=== PATIENT | male | born 1975 | race Caucasian/White ===

== ENCOUNTER 2025-05-22 10:51 | Inpatient (IN) | payer OTHER, SELFPAY ==
[2025-05-22] VITALS (27 sets, daily range): BP systolic 107–143; BP diastolic 61–99; PULSE 59–76; RESP 10–68; TEMP 36.7–37; O2SAT 91–97; BMI 28.5
--- NOTE | ~2025-05-22 | MR_ITS ---
EXAMINATION: MR BRAIN WITHOUT CONTRAST CLINICAL INFORMATION: Evaluate for stroke status post TPA. Left-sided weakness. COMPARISON: No prior MRI. CT head and CT angiogram head and neck 05/22/2025. TECHNIQUE: MRI of the brain was obtained using routine sequences without contrast. Examination performed on a 1.5 Lynn Siemens high-field unit. FINDINGS: There is no diffusion restriction. There is no intracranial hemorrhage, acute infarction, mass effect, or edema. Ventricles, sulci, and cisterns are normal in size and configuration for patient age. No shift of midline. No abnormal hemosiderin deposition is identified. There is a prominent perivascular space in the left basal ganglia. There are a few scattered punctate foci of white matter T2 hyperintensity in the periventricular, subcortical, and hemispheric deep white matter. These foci are nonspecific but statistically most likely relate to small vessel ischemic changes. They can also be seen with migraines. Midline structures appear normally formed. The pituitary gland appears normal. Posterior fossa structures appear normal. Cerebellar tonsils are appropriately located. Major flow voids are preserved within the skull base. The globes and orbital contents demonstrate no abnormalities. Paranasal sinuses demonstrate mild mucosal thickening left greater than right maxillary sinuses. The mastoids and tympanic cavities are normally aerated. Extracranial soft tissues demonstrate no abnormalities. No suspicious bone marrow changes are evident. Atlantoaxial joint is normal. MR/MR head/brain wo con IMPRESSION: 1. No evidence of intracranial hemorrhage, acute infarction, mass effect, or edema. 2. Very mild scattered white matter T2 hyperintense foci, findings consistent with very mild changes of small vessel ischemia. These findings can also be seen related to migraines. Electronically signed by: Cedrick Fernandez MD 05/23/2025 01:04 PM EDT
--- NOTE | ~2025-05-22 | CT_ITS ---
CLINICAL HISTORY: left sided weakness CT head without contrast Comparison: None provided Findings: No intra-axial mass, midline shift, hydrocephalus, or acute hemorrhage. Perivascular space versus old lacunar infarct in the inferior aspect of the left lentiform nucleus. A few bilateral small maxillary sinus polyps/retention cysts and mild left maxillary sinus mucosal thickening. The orbits are within normal limits. No skull fracture. IMPRESSION: 1. No acute intracranial findings. This document has been electronically signed by: Tosha Man MD on 05/22/2025 11:28:27
--- NOTE | ~2025-05-22 | CT_ITS ---
CLINICAL HISTORY: left sided weakness CT angiography head and neck with contrast. 3D Postprocessing. Comparison: None provided Findings: Dominant left vertebral artery. No evidence of significant arterial stenosis, aneurysm, AVM, or dissection. Patent dural venous sinuses. No abnormal intracranial enhancement. For rest of head findings please refer to same-day nonenhanced head CT report. Unremarkable visualized soft tissues. No acute fracture. Visualized lungs are unremarkable. 2 small foci of hyperostosis/osteomas along the medial aspects of the left and right mandibular arches (anterior aspect). IMPRESSION: No evidence of significant arterial stenosis, aneurysm, AVM, or dissection. This document has been electronically signed by: Tosha Man MD on 05/22/2025 12:11:12
--- NOTE | ~2025-05-22 | XR_ITS ---
CLINICAL HISTORY: left sided chest pain 1 view chest x-ray Comparison: None provided Findings: No consolidation or effusion. Borderline cardiomegaly. No acute fracture. IMPRESSION: Borderline cardiomegaly. This document has been electronically signed by: Tosha Man MD on 05/22/2025 12:21:37
--- NOTE | 2025-05-22 10:59 | ED.GENADULT ---
HPI - General Adult General Chief complaint: Stroke Stated complaint: L RIB PAIN/HEAVY SHOULDER/LEG 30M,-THIN Time Seen by Provider: 05/22/25 10:59 History of Present Illness ED Provider: Jolly HARLEY narrative: The patient is a 49-year-old male who denies any significant past medical history. He was at home today. At around 09:45 he experienced a sharp pain in his left chest. This was soon followed by a sense of left arm and left leg weakness. His family called 911. When paramedics arrived they said that he had fairly dense left arm weakness. He was transported to the hospital. His left arm weakness has improved but not in resolved. The left chest pain has resolved and has not returned. Here in the emergency department he does not have any significant ongoing pain either in his chest or anywhere else in his body. The patient says he is on no regular medications. He denies a history of hypertension, diabetes, elevated cholesterol, or other problems. Related Data Allergies Allergy/AdvReac Type Severity Reaction Status Date / Time No Known Allergies Allergy Verified 05/22/25 11:20 Review of Systems Review of Systems: Yes all other systems are reviewed and are negative [facility] Social History Social History Alcohol intake: never Smoked in Last 30 Days: No Use of substances other than those prescribed or required for medical reasons: No Advance Directives: No Advance Directives Information Provided: Yes Physical Exam ED Vital Signs: Vital Signs - 24 hr 05/22/25 11:16 05/22/25 11:23 05/22/25 11:36 Temperature 98.6 F 98.6 F Pulse Rate 76 76 62 Respiratory Rate 17 17 14 Blood Pressure 132/87 132/87 123/87 Pulse Oximetry 95 Oxygen Delivery Method Room Air Room Air Room Air 05/22/25 11:55 05/22/25 12:14 05/22/25 12:15 Temperature Pulse Rate 62 61 Respiratory Rate 18 18 Blood Pressure 132/98 H 133/91 H Pulse Oximetry 97 94 Oxygen Delivery Method Room Air 05/22/25 12:25 05/22/25 12:29 05/22/25 12:37 Temperature 98.2 F Pulse Rate 63 64 60 Respiratory Rate 20 18 18 Blood Pressure 120/99 H 136/98 H 137/89 Pulse Oximetry 95 94 95 Oxygen Delivery Method Room Air Room Air 05/22/25 12:56 Temperature 98.1 F Pulse Rate 66 Respiratory Rate 18 Blood Pressure 127/88 Pulse Oximetry 95 Oxygen Delivery Method Room Air BMI result Body Mass Index 28.5 Const Other: The patient is a 49-year-old male who looks as if he is generally in good health. He was awake and alert and did not seem in any acute distress. Mental status was normal. HENMT Other: No facial asymmetry. Tongue is midline. Face is unremarkable. Mucous membranes moist. Eyes Other: Pupils are round equal, extraocular movements are intact, visual pineda are intact to confrontation. Neck Neck: Yes normal visual inspection and Yes full ROM Resp Effort & Inspection: normal respiratory effort Auscultation: clear to auscultation bilaterally Cardio Other: No murmur heard Rate: regular rate Rhythm: regular rhythm Heart sounds: S1 normal heart sound present and S2 normal heart sound present GI Other: Abdomen is soft and nontender Skin Other: The skin is dry and unremarkable Neuro Other: The patient is awake and alert with a normal mental status. He is oriented to his age and the month. He follows commands appropriately. Pupils are round equal, lateral gaze is intact bilaterally. Visual pineda are intact to confrontation. There was no facial asymmetry. Speech is without dysarthria or aphasia. On my initial exam he had some mild left upper extremity weakness with fairly significant pronator drift but the arm did not hit the bed. His left leg had 4/5 strength when he attempted to lift the leg off the bed. No cerebellar signs. Sensation was intact throughout. On my initial exam his NIH stroke scale was a proximally 3, with one point for mild left arm weakness and at most 2 for left leg weakness. Extrem Other: There is no calf swelling or tenderness. No asymmetry. No peripheral edema. Medications Administered Discontinued Medications Generic Name Dose Route Start Last Admin Trade Name Subhashq PRN Reason Stop Dose Admin Iohexol 100 ml 05/22/25 11:21 05/22/25 11:21 Iohexol 350 Mg/Ml 100 Ml Infus..Btl IV 05/22/25 11:22 70 ml ONCE ONE Administration Tenecteplase 25 mg 05/22/25 11:23 05/22/25 11:58 Tenecteplase 50 Mg/10 Ml Kit IVPUSH 05/22/25 11:24 25 mg ONCE ONE Administration Medical Decision Making Medical Decision Making MDM Narrative: The patient is a 49-year-old male without significant past medical history, on no medications, who was at home this morning when at about 09:45 he 1st developed a stabbing pain in his left chest that he said felt like he was being stabbed in the ribs. This was followed by a sense of heaviness in his left arm and left leg. The weakness in his left arm and left leg was quite significant. His family was concerned and called an ambulance. Paramedics report that when they found the patient he had significant left-sided weakness that improved significantly in route to the hospital although it did not entirely resolve. I saw the patient on arrival. He had some left arm pronator drift and some more significant left leg weakness but no other neurological findings. He was made a code stroke and sent for noncontrast head CT and CT angiogram of the head and neck. Although the patient has left-sided weakness was suggestive of a stroke his description of the chest pain that preceded the weakness was unusual. Also unusual is that he is young and otherwise healthy and looks quite well. His vital signs were unremarkable. Additionally complicating management decisions was that his symptoms were improving while in the emergency room. I re-examined him after he returned from CAT scan. At that time his left arm pronator drift had resolved although he has a subjective sense that the left arm was somewhat heavy. Also his left leg strength improved significantly although again he still felt that the left leg was very heavy and he was not moving in his easily as the right leg. The patient denied any headache. He had no neck or back pain. The chest pain that he had had earlier had entirely resolved. Because of the chest pain he had described prior to the weakness I had asked the CT angiogram to generously include as much of the chest as seemed reasonable. I did not see any sign of dissection on the imaging. I felt the case was very equivocal as to whether he should receive thrombolytic therapy. He arrived within 3 hour window and he had no absolute contraindications to receiving TNK however his symptoms were very mild. I spoke to Dr. 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 I spoke to the patient and his (she was at the bedside) about using TNK in his case. They took a long time in discussing whether he should receive the medication. After a very prolonged discussion the patient finally consented to receiving thrombolytics. I had no good alternate explanation for the patient is left-sided weakness. He had no headache. No back pain. No neck pain. The patient will be admitted to the intensive care unit. Lab Data 05/22/25 11:09 05/22/25 11:09 Labs: Lab Results 05/22/25 05/22/25 05/22/25 Range/Units 11:01 11:04 11:09 WBC 4.6 L (4.8-10.8) X10*3/uL RBC 5.31 (4.20-5.50) X10*6/uL Hgb 16.4 H (12.0-16.0) g/dl Hct 45.0 (37.0-47.0) % MCV 84.7 (80.0-98.0) fL MCH 30.9 (27.0-33.0) pg MCHC 36.4 H (31.0-35.0) g/dl RDW 12.5 (11.0-16.0) % Plt Count 237 (160-400) X10*3/uL MPV 8.9 L (9.4-12.3) fL Immature Gran % (Auto) 0.2 (0.0-0.4) % Neut % (Auto) 45.6 (45-73) % Lymph % (Auto) 38.5 (20-40) % Maury % (Auto) 8.6 (2-11) % Eos % (Auto) 6.4 H (0-4) % Baso % (Auto) 0.7 (0-2) % Lymph # (Auto) 1.8 (1.2-4.9) X10*3/uL Maury # (Auto) 0.4 (0.1-1.2) X10*3/uL Eos # (Auto) 0.3 (0.0-0.4) X10*3/uL Baso # (Auto) 0.0 (0.0-0.2) X10*3/uL Abs Immat Gran (auto) 0.01 (0.00-0.03) X10*3/uL Absolute Neuts (auto) 2.1 (2.0-8.3) x10*3/uL Absolute Nucleated RBC 0.000 (0.0-0.012) X10*3/uL Nucleated RBC % (auto) 0.0 (0.0-0.2) /100WBC PT 11.1 (10.9-12.4) SEC Whole Blood PT 12.2 (11.1-13.5) sec INR 1.0 (0.9-1.1) Whole Blood INR 1.0 (0.9-1.1) APTT 32.6 (26.7-34.1) SEC Sodium 140 (135-145) mmol/L Potassium 4.4 (3.3-5.1) mmol/L Chloride 106 (96-108) mmol/L Carbon Dioxide 27 (22-29) mmol/L Anion Gap 11 L (12-20) BUN 13 (9-16) mg/dL Creatinine 0.87 (0.5-1.4) mg/dL Estim Creat Clear Calc 140.4 Estimated GFR > 60 POC Glucose 100 (60-115) mg/dL Random Glucose 89 (60-115) mg/dL Calcium 9.6 (8.4-10.2) mg/dL Troponin I High Sens < 2.7 (<3.5-35.0) ng/L Triglycerides 120 (<150) mg/dL Cholesterol 207 H (<200) mg/dL LDL Cholesterol, Calc 127 H (<100) mg/dL HDL Cholesterol 56 (>40) mg/dL Ethyl Alcohol < 10 mg/dL Critical Care Time Critical Care Time Critical Care Time: Yes Total Critical Care Time: 60 Attestation: The patient was critically ill with a high probability of imminent or life-threatening deterioration. ?I spent greater than 30 minutes of discontinuous time evaluating the patient, delivering critical care at the bedside, discussing evaluating data with consultants. ?Critical care time does not include time spent performing separately billable procedures or teaching. ?Time spent performing critical care with 35 minutes. Discharge Plan Discharge Clinical Impression: Acute left-sided weakness Patient Disposition: Admitted As Inpatient Print Language: Nepali
--- NOTE | 2025-05-22 11:00 | ECG_ITS ---
Test Reason : STROKE PROTOCOL Blood Pressure : */* mmHG Vent. Rate : 59 BPM Atrial Rate : 59 BPM P-R Int : 160 ms QRS Dur : 76 ms QT Int : 386 ms P-R-T Axes : 55 52 24 degrees QTcB Int : 382 ms Sinus bradycardia Otherwise normal ECG No previous ECGs available Referred By: Cecilio Azevedo Electronically Signed By: ALEXANDRE GAGNON MD
[2025-05-22 11:08] LABS: Glucose, Whole Blood 100 mg/dL (60-115)
[2025-05-22 11:08] LABS: Prothrombin Time Whole Bld POC 12.2 sec (11.1-13.5); ~PT, ~INR - Anti Coag Clinic 1.0 (0.9-1.1)
[2025-05-22 11:15] LABS: Hematocrit 45.0 % (37.0-47.0); Hemoglobin 16.4 g/dl (12.0-16.0); Imm Gran Abs Auto 0.01 X10*3/uL (0.00-0.03); Imm Gran Pct Auto 0.2 % (0.0-0.4); Lymphocytes Absolute Auto 1.8 X10*3/uL (1.2-4.9); MANUAL DIFF FLAG NO; Mean Corpuscular HGB Conc 36.4 g/dl (31.0-35.0); Mean Corpuscular Hemoglobin 30.9 pg (27.0-33.0); Mean Corpuscular Volume 84.7 fL (80.0-98.0); NRBC Abs Auto 0.000 X10*3/uL (0.0-0.012); NRBC Pct Auto 0.0 /100WBC (0.0-0.2); Platelet Count 237 X10*3/uL (160-400); Red Blood Count 5.31 X10*6/uL (4.20-5.50); White Blood Count 4.6 X10*3/uL (4.8-10.8)
[2025-05-22 11:21] LABS: INTERNATIONAL NORM RATIO 1.0 (0.9-1.1); Prothrombin Time 11.1 SEC (10.9-12.4)
[2025-05-22] MEDS: iohexoL 350 MG/ML 100 ML INFUS..BTL IV (11:21)
[2025-05-22 11:23] LABS: Partial Thromboplastin Time 32.6 SEC (26.7-34.1)
[2025-05-22 11:24] LABS: Stroke Lab Use COMPLETE
[2025-05-22 11:50] LABS: Anion Gap 11 (12-20); Blood Urea Nitrogen 13 mg/dL (9-16); Calcium 9.6 mg/dL (8.4-10.2); Carbon Dioxide 27 mmol/L (22-29); Chloride 106 mmol/L (96-108); Cholesterol 207 mg/dL (<200); Creatinine Clr Calc Pharmacy 140.4; Estimated Glomerular Filt Rate > 60; HDL Cholesterol 56 mg/dL (>40); Potassium 4.4 mmol/L (3.3-5.1); Sodium 140 mmol/L (135-145); Triglycerides 120 mg/dL (<150)
[2025-05-22 11:51] LABS: Troponin-I High Sensitivity < 2.7 ng/L (<3.5-35.0)
--- NOTE | 2025-05-22 12:03 | PC.NURSE ---
Patient arrived via ems with complaints of left rib/ side pain that felt like he was being stabbed between the ribs. Unsure how long it lasted but then left arm and left leg weakness and heaviness started. Upon arrival left arm with slight drift when asked to hold arms out in front of him and close eyes. Able to light leg leg slowly but states it feels heavy. 20g iv placed in left arm, brought to ct. MD at bedside with present to review risks vs benefits of tnk. Provider administered tnk at bedside. Denies headaches , vision changes, neck pain , or dizziness. PERRLA.
--- NOTE | 2025-05-22 12:33 | PC.NURSE ---
nathaly ARMENDARIZ patient report he is able to left left leg easier. Left arm patient reports close to being back to baseline. Patient stating left leg still feels heavy. Denies vision changes or headache
--- NOTE | 2025-05-22 12:39 | PC.NURSE ---
neuros intact, passed swallow eval, vss, denies vision changes, headaches, sob, or chest pain, at bedside. Patient and aware plan is for transfer to ICU
--- NOTE | 2025-05-22 12:54 | PC.NURSE ---
Continues to report improvement in left leg, states leg feels less heavy , reports able to raise left leg higher and with less difficulty. PERRLA, denies chest pain, sob, or visiob changes.
--- OUTSIDE RECORDS SUMMARY | 2025-05-22 13:12 | XMS_ITS | Encounter Summary ---
Author Organization [facility] Address [facility] [address] [address] Phone Care Team Providers Care Planer Hand Name Role Phone Lulú Bui DRAW FIRE OPERATOR Unavailable Christy Casas DRAW FIRE OPERATOR Unavailable Sandee Rodriguez PROSTHODONTIST/EDUCATOR Unavailable Susie Ferro TIN FLIPPER Unavailable [phone] Fran Vincent MD Unavailable Jenni Hinson DRAW FIRE OPERATOR Unavailable Harjinder Vincent MD Unavailable Jaxson Roman PROSTHODONTIST/EDUCATOR Unavailable Fran Vincent MD Primary Care Provider Hal Jorge MD Primary Care Provider Encounter Details Date Type Department Care Team (Late st Contact Info) Description 09/02/2017 Procedure Pass [facility], Ct Scan - [address] [address] Social History Tobacco Use Types Packs/Day Years Used Date Smoking Tobacco: Never Smokeless Tobacco: Never Alcohol Use Standard Drinks/Week Comments Yes 1 (1 standard drink = 0.6 oz pur e alcohol) Sex and Gender Information Value Date Recorded Sex Assigned at Male 09/14/2017 1:36 PM EST Legal Sex Male 9:25 PM EDT Gender Identity Male 09/14/2017 1:36 PM EST Sexual Orientation Straight 09/14/2017 1: 36 PM EST documented as of this encounter Plan of Treatment Upcoming Encounters Date Type Department Care Team (Late st Contact Info) Description 05/23/2025 9:30 AM EDT Office Visit [facility] [address] [place] [address] Hal Jorge MD [address] [place] [id number] [email or web address] 10/21/2025 12:00 PM EST Office Visit [address] [address] Hal Jorge MD [address] [place] [phone] [email or web address] documented as of this encounter Visit Diagnoses Not on filedocumented in this encounter Care Teams Planer Hand Relationship Specialty Start Date End Date Fran Vincent MD [address] [place] [phone] [email or web address] PCP - General Family Medicine 08/04/17 09/15/22 Hal Jorge MD [address] [place] [id number] [email or web address] PCP - General Family Medicine 09/16/22 Lulú Bui NP [address] [place] [address] Historical LMR Provider 06/03/17 2 Christy Casas NP [address] [place] [address] Historical LMR Provider 06/03/17 2 Sandee Rodrigeuz CNP [address] [facility], 2nd [place] [address] [email or web address] Historical LMR Provider 06/03/17 08/25/21 Susie Ferro FNP [address] [place] [address], [address] [place] [address] [email or web address] Historical LMR Provider 06/03/17 08/25/21 Fran Vincent MD [address] [place] [address] [address] [place] [phone] [email or web address] Historical LMR Provider 06/03/17 Jenni Hinson NP [address] [place] [id number] Historical LMR Provider 06/03/17 2 Harjinder Vincent MD [address] [place] [address] [address] [place] [phone] [email or web address] Historical LMR Provider 06/03/17 Jaxson Roman CNP [address] [facility], [address] [place] [address] [email or web address] Historical LMR Provider 06/03/17 documented as of this encounter Additional Source Comments The information contained in this document represents components of the legal health record. It is not the complete legal health record.[facility]
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
--- OUTSIDE RECORDS SUMMARY | 2025-05-22 13:12 | XMS_ITS | Encounter Summary ---
Author Organization [facility]ly [facility] Address [facility] [employer] [address] [address] Phone Care Team Providers Care Etl Tester Name Role Phone Lulú Bui SUPERVISOR CAR AND YARD Unavailable Christy Casas SUPERVISOR CAR AND YARD Unavailable Sandee Rodriguez STUDIO GRIP Unavailable Susie Ferro SALES SPECIAL AGENT Unavailable [phone] Fran Vincent MD Unavailable [phone] Jenni Hinson SUPERVISOR CAR AND YARD Unavailable Harjinder Vincent MD Unavailable Jaxson Roman STUDIO GRIP Unavailable Fran Vincent MD Primary Care Provider Hal Jorge MD Primary Care Provider [phone] Encounter Details Date Type Department Care Team (Late st Contact Info) Description 08/07/2017 Procedure Pass OR Admitting Dept - Virtual Department [address] [place], [place] [id number] Social History Tobacco Use Types Packs/Day Years [...] Description 05/23/2025 9:30 AM EDT Office Visit [facility] [address] [place] [address] Hal Jorge MD [address] [address] [email or web address] 10/21/2025 12:00 PM EST Office Visit [address] [address] Hal Jorge MD [address] [place] [phone] [email or web address] documented as of this encounter Visit Diagnoses Not on filedocumented in this encounter Care Teams Etl Tester Relationship Specialty Start Date End Date Fran Vincent MD [address] [place] [phone] [email or web address] PCP - General Family Medicine 08/04/17 09/15/22 Hal Jorge MD [address] [place] [phone] [email or web address] PCP - General Family Medicine 09/16/22 Lulú Bui NP 1 [place] [address] Historical LMR Provider 06/03/17 2 Christy Casas NP 29 [place] [address] Historical LMR Provider 06/03/17 2 Sandee Rodriguez CNP [address] [facility], 2nd [place] [address] Historical LMR Provider 06/03/17 08/25/21 Susie Ferro FNP [address] [place] [address], [address] [place] [address] [email or web address] Historical LMR Provider 06/03/17 08/25/21 Fran Vincent MD [address] [place] [address] 7 [place] [phone] [email or web address] Historical LMR Provider 06/03/17 Jenni Hinson, CHANEL [address] [place] [address] Historical LMR Provider 06/03/17 2 Harjinder Vincent MD [address] [place] [address] [address] [place] [phone] [email or web address] Historical LMR Provider 06/03/17 Jaxson Roman CNP [address] [facility], [address] [place] [address] [email or web address] Historical LMR Provider 06/03/17 documented as of this encounter Additional Source Comments The information contained in this document represents components of the legal health record. It is not the complete legal health record.[facility]
--- OUTSIDE RECORDS SUMMARY | 2025-05-22 13:12 | XMS_ITS | Encounter Summary ---
Author Organization [facility] Address Replaced by [facility] [employer] [address] [address] Phone Care Team Providers Care Admission Nurse Name Role Phone Lulú Bui RAG COLLECTOR Unavailable Christy Casas RAG COLLECTOR Unavailable Sandee Rodriguez GAS WELDER APPRENTICE Unavailable Susie Ferro COMPLIANCE INTERN Unavailable [phone] Fran Vincent MD Unavailable [phone] Jenni Hinson RAG COLLECTOR Unavailable Harjinder Vincent MD Unavailable Jaxson Roman GAS WELDER APPRENTICE Unavailable Fran Vincent MD Primary Care Provider Hal Jorge MD Primary Care Provider Encounter Details Date Type Department Care Team (Late st Contact Info) Description 08/07/2017 Procedure Pass OR Admitting Dept - Virtual Department 30 [place], [place] [phone] Social History Tobacco Use Types Packs/Day Years [...] Description 05/23/2025 9:30 AM EDT Office Visit [facility] [address] [place] [address] Hal Jorge MD [address] [address] [email or web address] 10/21/2025 12:00 PM EST Office Visit [address] [address] Hal Jorge MD [address] [place] [address] [email or web address] documented as of this encounter Visit Diagnoses Not on filedocumented in this encounter Care Teams Admission Nurse Relationship Specialty Start Date End Date Fran Vincent MD [address] [place] [phone] [email or web address] PCP - General Family Medicine 08/04/17 09/15/22 Hal Jorge MD [address] [place] [address] [email or web address] PCP - General Family Medicine 09/16/22 Lulú Bui NP 1 [facility] [place] [address] Historical LMR Provider 06/03/17 2 Christy Casas NP 29 [place] [address] Historical LMR Provider 06/03/17 2 Sandee Rodriguez CNP 15 [facility], 2nd [place] [address] Historical LMR Provider 06/03/17 08/25/21 Susie Ferro FNP [address] [place] [address], [address] [place] [address] [email or web address] Historical LMR Provider 06/03/17 08/25/21 Fran Vincent MD [address] [place] [address] 7 [place] [phone] [email or web address] Historical LMR Provider 06/03/17 Jenni Hinson, CHANEL [address] [place] [address] Historical LMR Provider 06/03/17 2 Harjinder Vincent MD [address] [place] [address] [address] [place] [phone] [email or web address] Historical LMR Provider 06/03/17 Jaxson Roman CNP 22 [facility], [address] [place] [address] [email or web address] Historical LMR Provider 06/03/17 documented as of this encounter Additional Source Comments The information contained in this document represents components of the legal health record. It is not the complete legal health record.[facility]
[2025-05-22] MEDS: Lactated Ringers 1,000 ML 100 ML IVCONT ×2 (13:22→21:59)
--- NOTE | 2025-05-22 13:36 | PC.NURSE ---
Report given to ICU
[2025-05-22 14:50] LABS: Troponin-I High Sensitivity < 2.7 ng/L (<3.5-35.0)
--- NOTE | 2025-05-22 14:58 | P.HPCC_ITS ---
History of Present Illness Date of Service: 05/22/25 Chief Complaint: Left-sided heaviness 49-year-old gentleman with no significant past medical history, last annual physical 3 months ago when everything was seemed to be normal was apparently had a normal beginning Friday when he walked his dog and came back home. At around 09:45 when he was making breakfast for his daughter he suddenly felt stabbing chest pain and his left arm was heavy as well as his left leg, he walked with a so far and sat down where he has felt his left side of the body was weak. called the EMS, brought into the ED underwent CT and CTA both of which was normal, his symptoms had started improving but still had some persisting symptoms so received TNK at 11:58AM. He is admitted to medical ICU for post TNK monitoring Review of Systems 2 Constitutional: Constitutional: Denies body ache(s), Denies daytime sleepiness and Denies difficulty sleeping Eyes: Eyes: Denies exophthalmos and Denies change in vision ENT: Reports Normal hearing present, Denies bleeding gums and Reports dizziness Cardiovascular: Cardiovascular: Reports Abdominal Distension, Reports chest pain and Denies chest pain at rest Respiratory: Respiratory: Denies change in phlegm color, Denies chest congestion and Denies cough Gastrointestinal: Gastrointestinal: Denies abdominal pain, Denies melena and Denies hematochezia Genitourinary: Genitourinary: Denies change in libido and Denies hematuria Musculoskeletal: Musculoskeletal: Denies myalgias and Denies atrophy Neurologic: Reports Normal hearing present, Denies Neuro-related abnormal movements, Denies Abnormal speech present, Denies confusion, Reports dizziness, Reports focal weakness, Reports Sensory deficit (Neuro) and Reports paresthesias Psychiatric: Psychiatric: Denies change in libido and Denies confusion Endocrine: Endocrine: Denies change in libido and Denies cold intolerance PMFSH Social History Social History Household Members: Spouse and Children Housing: House Do you presently have visiting nurse or other home services: No Alcohol intake: never Patient Tobacco Use Status: Never used Tobacco Smoked in Last 30 Days: No Use of substances other than those prescribed or required for medical reasons: No Have you been hit, kicked, punched, or otherwise hurt by someone within the past year? If so, by whom?: No Do you feel safe in your current relationship?: Yes Is there a partner from a previous relationship who is making you feel unsafe now?: No Are you made to feel afraid or neglected: No Advance Directives: No Advance Directives Information Provided: Yes Do you have a plan to hurt others: No Plan Recently lost weight without trying: No Eating poorly because of decreased appetite: No Nutrition Risks: No Nutritional Risk Poor oral hygiene: No Meds Allergies Allergy/AdvReac Type Severity Reaction Status Date / Time No Known Allergies Allergy Verified 05/22/25 11:20 Active Medications: Current Medications Lactated Ringer's (Lr) 1,000 mls @ 100 mls/hr IVCONT .Q10H [facility] Last Admin: 05/22/25 13:22 Dose: 100 mls/hr Ondansetron HCl (Ondansetron Hcl 4 Mg/2 Ml Vial) 4 mg IVPUSH Q8H PRN PRN Reason: Vomiting Pantoprazole Sodium (Pantoprazole Sodium 40 Mg/10 Ml Vial) 40 mg IVPUSH DAILY@0630 [facility] Last Admin: 05/22/25 13:22 Dose: 40 mg Home Medications ?Medication ?Instructions ?Recorded ?Confirmed ?Last Taken ?Type No Known Home Meds 05/22/25 05/22/25 Un known History Physical Exam 2 Vital Signs: Vital Signs: Last Vital Signs Temp 98.1 F 05/22/25 12:56 Pulse 64 05/22/25 14:00 Resp 14 05/22/25 14:00 BP 133/88 05/22/25 14:00 Pulse Ox 93 05/22/25 14:00 O2 Del Method Room Air 05/22/25 14:00 BMI result Body Mass Index 28.5 General: Middle-aged male in no acute distress, comfortably sitting in the Nutritional Appearance: well nourished and overweight Eyes: appearance normal, both eyes and all related structures; Alignment and Position: alignment normal and position normal Neck: No lymphadenopathy, no thyromegaly Resp: bilateral air entry equal, no added sounds present Cardio: Regular rate, regular rhythm; Heart sounds: S1 normal heart sound present and S2 normal heart sound present GI: soft, nontender, no guarding, no hepatosplenomegaly : bladder normal to inspection, bladder normal to palpation, no renal angle tenderness Skin: no rashes or lesions noted and elasticity normal Neuro: oriented to person, oriented to place, oriented to time, left-sided power 5 x 5 in upper and lower extremities, gross touch, fine touch and positional sensations normal in left upper and lower extremities Const: General: No confusion Orientation/consciousness: No confusion Neuro: General: No confusion Cranial nerves: Yes Normal hearing present Speech: No Abnormal speech present Sensory Exam: Sensory deficit (Neuro) Results Labs 05/22/25 11:09 05/22/25 11:09 Labs: Laboratory Results - last 24 hr 05/22/25 05/22/25 05/22/25 11:01 11:04 11:09 MCV 84.7 MCH 30.9 MCHC 36.4 H RDW 12.5 Plt Count 237 MPV 8.9 L Immature Gran % (Auto) 0.2 Neut % (Auto) 45.6 Lymph % (Auto) 38.5 Irwin % (Auto) 8.6 Eos % (Auto) 6.4 H Baso % (Auto) 0.7 Lymph # (Auto) 1.8 Irwin # (Auto) 0.4 Eos # (Auto) 0.3 Baso # (Auto) 0.0 Abs Immat Gran (auto) 0.01 Absolute Neuts (auto) 2.1 Absolute Nucleated RBC 0.000 Nucleated RBC % (auto) 0.0 PT 11.1 Whole Blood PT 12.2 INR 1.0 Whole Blood INR 1.0 APTT 32.6 Anion Gap 11 L Estim Creat Clear Calc 140.4 Estimated GFR > 60 POC Glucose 100 Random Glucose 89 Calcium 9.6 Phosphorus Troponin I High Sens < 2.7 Triglycerides 120 Cholesterol 207 H LDL Cholesterol, Calc 127 H HDL Cholesterol 56 Ethyl Alcohol < 10 05/22/25 13:45 MCV MCH MCHC RDW Plt Count MPV Immature Gran % (Auto) Neut % (Auto) Lymph % (Auto) Irwin % (Auto) Eos % (Auto) Baso % (Auto) Lymph # (Auto) Irwin # (Auto) Eos # (Auto) Baso # (Auto) Abs Immat Gran (auto) Absolute Neuts (auto) Absolute Nucleated RBC Nucleated RBC % (auto) PT Whole Blood PT INR Whole Blood INR APTT Anion Gap Estim Creat Clear Calc Estimated GFR POC Glucose Random Glucose Calcium Phosphorus 3.3 Troponin I High Sens < 2.7 Triglycerides Cholesterol LDL Cholesterol, Calc HDL Cholesterol Ethyl Alcohol Assessment and Plan (1) Acute left-sided weakness: Status: Acute (2) Stroke: Status: Acute Plan Acute ischemic stroke: Patient presented with sudden onset left upper and lower extremity heaviness and weakness that began at 09:45AM. CT head and CTA head and neck normal. Received TNK at 11:58AM. We will closely monitor his neurological status every 15 minutes for the 1st 2 hours, then every 30 minutes for for 6 hours and then hourly Repeat brain imaging in case of any neurological deterioration, or else it will be tomorrow morning. Closely monitor blood pressures, target systolics less than 185mmHg We will start statin, aspirin as per Neurology We will get TTE Passed swallow evaluation, diet ordered Will need OT and PT evaluation tomorrow
--- NOTE | 2025-05-22 14:58 | PHA.MEDREC ---
Pharmacy Consult ? Medication Reconciliation Pharmacy has completed the medication reconciliation. PT HAS NO CLAIMS. CONFIRMED WITH PT THAT HE TAKES NO MEDICATIONS ON REGULAR BASIS.
--- NOTE | 2025-05-22 16:09 | PM.NEUROCN ---
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 He was in usual state of health when he felt pain and left side of his chest and then weakness in his left arm or leg. Weakness and arm or leg seem to spread and few sec and it became so severe that he could not even lift his arm or leg. Nobody noted any facial asymmetry. He was brought to hospital in apparently his weakness somewhat improved but continued to be so. Initial evaluation for stroke were done and with no contraindication and discussion about his profession that might be impacted by weakness, it was decided to treat him with TNK for diagnosis of ischemic stroke. I saw him in ICU when he was doing okay with symptoms resolved. He denied any headache. There was no nausea vomiting. He denied any new significant stress. He denied any aggressive physical activity. Review of Systems Review of Systems: No recent cold or flu-like illness PMFSH Social History Social History Household Members: Spouse and Children Housing: House Do you presently have visiting nurse or other home services: No Alcohol intake: never Patient Tobacco Use Status: Never used Tobacco Smoked in Last 30 Days: No Use of substances other than those prescribed or required for medical reasons: No Have you been hit, kicked, punched, or otherwise hurt by someone within the past year? If so, by whom?: No Do you feel safe in your current relationship?: Yes Is there a partner from a previous relationship who is making you feel unsafe now?: No Are you made to feel afraid or neglected: No Advance Directives: No Advance Directives Information Provided: Yes Do you have a plan to hurt others: No Plan Recently lost weight without trying: No Eating poorly because of decreased appetite: No Nutrition Risks: No Nutritional Risk Poor oral hygiene: No Meds Allergies Allergy/AdvReac Type Severity Reaction Status Date / Time No Known Allergies Allergy Verified 05/22/25 11:20 Active Medications: Current Medications Atorvastatin Calcium (Atorvastatin Calcium 80 Mg Tablet) 80 mg PO DAILY [facility] Lactated Ringer's (Lr) 1,000 mls @ 100 mls/hr IVCONT .Q10H [facility] Last Admin: 05/22/25 13:22 Dose: 100 mls/hr Ondansetron HCl (Ondansetron Hcl 4 Mg/2 Ml Vial) 4 mg IVPUSH Q8H PRN PRN Reason: Vomiting Pantoprazole Sodium (Pantoprazole Sodium 40 Mg/10 Ml Vial) 40 mg IVPUSH DAILY@0630 [facility] Last Admin: 05/22/25 13:22 Dose: 40 mg Home Medications ?Medication ?Instructions ?Recorded ?Confirmed ?Last Taken ?Type No Known Home Meds 05/22/25 05/22/25 Unknown History Physical Exam Vital Signs: Vital Signs: Last Vital Signs Temp 98.1 F 05/22/25 12:56 Pulse 76 05/22/25 15:00 Resp 10 L 05/22/25 15:00 BP 134/88 05/22/25 15:00 Pulse Ox 94 05/22/25 15:00 O2 Del Method Room Air 05/22/25 15:00 BMI result Body Mass Index 28.5 Neuro: Other: He is alert and awake with normal spontaneity of speech fluency comprehension and mildly anxious affect. Face is symmetrical. Visual pineda are full. Extraocular muscles were intact. Pupils are equal and reactive to light. There was no pronator drift. No focal weakness was noted. Plantars were flexors. Results Labs 05/22/25 11:09 05/22/25 11:09 Labs: Short CBC 05/22/25 Range/Units 11:09 WBC 4.6 L (4.8-10.8) X10*3/uL Hgb 16.4 H (12.0-16.0) g/dl Hct 45.0 (37.0-47.0) % Plt Count 237 (160-400) X10*3/uL BMP 05/22/25 11:09 Sodium 140 Potassium 4.4 Chloride 106 Carbon Dioxide 27 BUN 13 Creatinine 0.87 Calcium 9.6 CTA and CTA of brain and neck did not reveal any significant abnormality. Assessment and Plan (1) Acute left-sided weakness: Status: Acute 49 years old man with acute left arm or leg weakness treated with TNK. Possibilities included ischemic infarct or complex migraine. A noncontrast MRI of brain is recommended for further evaluation. As far as migraine is concerned, he never had complex migraine or similar symptoms in the past and was not having a headache. I recommend keeping him in ICU for 24 hours and then transferred to intermediate care unit and starting him on baby aspirin daily at least until his workup is done. I would also recommend echocardiogram to rule out any congenital anomaly. Procedures Date of Service Date of Service: 05/22/25
--- NOTE | 2025-05-22 18:34 | PC.NURSE ---
Pt. arrived to ICU from ED at approx 1355- Pt. A&Ox4, PERRLA no complaints. SPRINGER, Mild weakness to LUE and LLE. Q30 min VS and neuro checks completed per post-TNK protocol. SR/SB on tele, HR 50s-70s. SBPs 120s-130s. Regular diet tolerating well. voiding cyu via urinal. Repositions self. Family at bedside, updated by this RN. Plan of care ongoing.
[2025-05-23] VITALS (16 sets, daily range): BP systolic 102–155; BP diastolic 68–90; PULSE 53–80; RESP 14–21; TEMP 36.1–36.6; O2SAT 90–96; BMI 28.2; BMI 29.1
[2025-05-23 05:08] LABS: MANUAL DIFF FLAG NO
--- NOTE | 2025-05-23 05:08 | PC.NURSE ---
Assumed care of patient at 1900. Neuro: Patient is alert and oriented x 4, Neuro checks [id number] until 1999, then Q1H. Some mild left sided weakness in both arm and leg. Pt complained of headache behind his right eye at 2200, with no further symptoms, provider notified and tylenol 975 mg x 1 administered with effect. Cardiac: SB-SR on monitor VSS. Resp: Room Air, Clear lungs GI/: Standing at bedside to use urinal. LBM 05/22/25. Integumentary/Musculoskeletal: Skin intact, moves all extremities.? Psychosocial: and daughter at bedside visiting. Pt receiving LR @ 100. Bed in lowest position, alarm on. Call alegre within reach.
[2025-05-23 05:11] LABS: Hematocrit 40.7 % (42.0-52.0); Hemoglobin 14.8 g/dl (14.0-18.0); Imm Gran Abs Auto 0.01 X10*3/uL (0.00-0.03); Imm Gran Pct Auto 0.2 % (0.0-0.4); Lymphocytes Absolute Auto 2.2 X10*3/uL (1.2-4.9); Mean Corpuscular HGB Conc 36.4 g/dl (31.0-36.0); Mean Corpuscular Hemoglobin 31.3 pg (27.0-33.0); Mean Corpuscular Volume 86.0 fL (80.0-98.0); NRBC Abs Auto 0.000 X10*3/uL (0.0-0.012); NRBC Pct Auto 0.0 /100WBC (0.0-0.2); Platelet Count 206 X10*3/uL (160-400); Red Blood Count 4.73 X10*6/uL (4.60-5.80); White Blood Count 5.1 X10*3/uL (4.8-10.8)
[2025-05-23 05:34] LABS: Alanine Aminotransferase 21 U/L (0-40); Albumin Level 3.9 g/dL (3.5-5.0); Alkaline Phosphatase 67 U/L (39-117); Anion Gap 12 (12-20); Aspartate Amino Transferase 17 U/L (5-37); Blood Urea Nitrogen 15 mg/dL (9-16); Calcium 8.6 mg/dL (8.4-10.2); Carbon Dioxide 23 mmol/L (22-29); Chloride 106 mmol/L (96-108); Creatinine Clr Calc Pharmacy 147.2; Estimated Glomerular Filt Rate > 60; Magnesium 2.0 mg/dL (1.6-2.6); Potassium 3.6 mmol/L (3.3-5.1); Sodium 137 mmol/L (135-145); Total Protein 6.2 g/dL (6.5-8.0)
--- NOTE | 2025-05-23 07:00 | CA_ITS ---
Transthoracic Echocardiogram Patient (Last, First, Middle): Taco Cobos, Gender: Male Date of : 1975 Age: 49 Procedure Date: 05/23/2025 Procedure Type: Transthoracic Echocardiogram Location: ICU Height: 193.04 cm Weight: 104.78 kg BSA: 2.36 m2 Heart Rate: 61 bpm BP: 121 / 85 mmHg Welder Pipe Making: LORNE Katz MD: Ankit Pedraza MD Exercise Planner: Keaton Lind MD Symptoms: stroke Study Quality: Fair ECG Rhythm: Sinus Conclusions: - Essentially normal study without clear evidence of intracardiac shunting Findings Left Ventricle Normal left ventricular size, thickness, and systolic function. The visually estimated ejection fraction is between 65-70%. Spectral Doppler is indicative of an impaired relaxation filling pattern. E/E prime ratio is <8, consistent with normal filling pressures. Right Ventricle Normal right ventricular cavity size and systolic function. Atria Both atria are normal in size. There is no evidence of interatrial shunt by agitated saline. Aortic Valve Normal aortic valve structure and function. There is no aortic valve stenosis. There is no aortic valve regurgitation. Mitral Valve Normal mitral valve structure and function. There is no mitral valve regurgitation. There is no mitral valve stenosis. Pulmonic Valve The pulmonic valve is likely normal. Tricuspid Valve Normal tricuspid valve structure. There is trace tricuspid valve regurgitation. Tricuspid regurgitation envelope is inadequate for calculation of right ventricular systolic pressure. Normal right atrial pressure. Great Vessels All visible segments of the aorta are normal in size. The pulmonary artery was not well visualized. Venous The inferior vena cava is normal in size and collapses greater than 50% with inspiration. Pericardium/Pleural There is no evidence of pericardial effusion. Prior Study Comparison No prior study available for comparison. Measurements 2D Linear Measurements IVSd: 0.99 0.6-0.9/0.6-1.0 cm LVIDd: 5.21 3.9-5.3/4.2-5.9 cm LVIDd Index: 2.21 2.4-3.2/2.2-3.1 cm/m2 LVIDs: 3.12 2.0-3.6 cm LVPWd: 1.06 0.7-1.1 cm LA Diam: 3.90 2.7-3.8/3.0-4.0 cm LAIDs Index: 1.65 1.5-2.3 cm/m2 LV Mass: 251.54 67-162/88-224 g LV Mass Index: 106.59 43-95/49-115 g/m2 LVOT Diam: 2.10 3.0+(-)1.3 cm 2D Systolic Function EF 4C: 65.90 >55% EF 2C: 69.10 >55% EF BiP: 67.80 >55% Mitral Valve MV Pk E: 0.64 MV PK A: 0.88 MV Decel Time: 190.00 E/A: 0.70 E'Lateral: 8.59 E'Medial: 8.38 E/E' Med: 7.70 E/E' Lat: 7.50 PHT: 56.00 MVA PHT: 3.93 Decel [place]: 3.38 Aortic Valve AoV Pk Steven: 1.47 AoV Mn Steven: 0.92 AoV VTI: 0.30 AoV Pk Grad: 9.00 Aov Mn Grad: 4.00 SHIVAM Cont.VTI: 3.10 LVOT LVOT Pk Steven: 1.34 LVOT Mn Steven: 0.89 LVOT VTI: 0.27 LVOT Pk Grad: 7.00 LVOT Mn Grad: 4.00 LVOT Diam: 2.10 LVOT Area: 3.46 Diastolic Function MV Pk E: 0.64 MV Pk A: 0.88 E/A: 0.70 E'Medial: 8.38 E/E' Med: 7.70 E' Laterial: 8.59 E/E' Lat: 7.50 Right Ventricle TAPSE (mm): 25.30 TVS' Steven: 15.10 Tricuspid Valve RA Press: 3.00 Great Vessels Aorta Sinus of Valsalva: 3.20 2.0-3.5 cm Ao Asc: 3.60 2.1-3.4 cm Ao Arch: 2.80 Pulmonary Veins Pulm Vein S/D 2.20 Pulmonary Valve PV Pk Steven: 1.05 Peak PV Grad: 4.00 Updated in Other Vendor System with Status of Final Keaton Lind MD electronically signed on 05/23/2025 4:11:27 PM with status of Final
[2025-05-23] MEDS: Lactated Ringers 1,000 ML 100 ML IVCONT (07:30)
--- NOTE | 2025-05-23 09:39 | PM.CCPN ---
Subjective Subjective Date of Service: 05/23/25 Critical Care Time (minutes): 60 Physical Exam Vital Signs: Vital Signs: Last Vital Signs Temp 97.0 F 05/23/25 08:00 Pulse 80 05/23/25 09:00 Resp 18 05/23/25 09:00 BP 125/86 05/23/25 09:00 Pulse Ox 94 05/23/25 09:00 O2 Del Method Room Air 05/23/25 09:00 BMI result Body Mass Index 28.2 Const: General: cooperative, healthy appearing, comfortable, no acute distress, well developed, alert, awake and Physically active Orientation/consciousness: patient oriented x3 HEENT: Head: Yes normal to inspection, Yes normocephalic and Yes atraumatic Eyes: General: appearance normal, both eyes and all related structures Neck: Neck: Yes normal visual inspection, Yes full ROM, Yes no meningeal signs, Yes trachea midline and Yes supple Chest: Chest palpation & inspection: normal inspection of the chest Resp: Effort & Inspection: normal respiratory effort Auscultation: no crackles, no rales and no rhonchi Cardio: Rate: regular rate Rhythm: regular rhythm GI: Inspection: Yes normal to inspection, No Abdominal wall edema and No distended Palpation (GI): Soft to palpation, not firm, nontender, no guarding and not rigid Skin: General skin exam: no rashes or lesions noted Neuro: General: patient oriented x3, tone normal, moves all extremities, no meningeal signs and no focal motor deficits Extrem: General: Yes normal to inspection, Yes full ROM, Yes capillary refill normal and Yes no clubbing, cyanosis or edema Psych: Appearance: grossly normal Objective Data Labs 05/23/25 04:58 05/23/25 04:58 Labs: Laboratory Results - last 24 hr 05/22/25 05/22/25 05/22/25 11:01 11:04 11:09 WBC 4.6 L RBC 5.31 Hgb 16.4 H Hct 45.0 MCV 84.7 MCH 30.9 MCHC 36.4 H RDW 12.5 Plt Count 237 MPV 8.9 L Immature Gran % (Auto) 0.2 Neut % (Auto) 45.6 Lymph % (Auto) 38.5 [place] % (Auto) 8.6 Eos % (Auto) 6.4 H Baso % (Auto) 0.7 Lymph # (Auto) 1.8 [place] # (Auto) 0.4 Eos # (Auto) 0.3 Baso # (Auto) 0.0 Abs Immat Gran (auto) 0.01 Absolute Neuts (auto) 2.1 Absolute Nucleated RBC 0.000 Nucleated RBC % (auto) 0.0 PT 11.1 Whole Blood PT 12.2 INR 1.0 Whole Blood INR 1.0 APTT 32.6 Sodium 140 Potassium 4.4 Chloride 106 Carbon Dioxide 27 Anion Gap 11 L BUN 13 Creatinine 0.87 Estim Creat Clear Calc 140.4 Estimated GFR > 60 POC Glucose 100 Random Glucose 89 Calcium 9.6 Phosphorus Magnesium Total Bilirubin AST ALT Alkaline Phosphatase Troponin I High Sens < 2.7 Total Protein Albumin Triglycerides 120 Cholesterol 207 H LDL Cholesterol, Calc 127 H HDL Cholesterol 56 Ethyl Alcohol < 10 05/22/25 05/23/25 13:45 04:58 WBC 5.1 RBC 4.73 Hgb 14.8 Hct 40.7 L MCV 86.0 MCH 31.3 MCHC 36.4 H RDW 12.4 Plt Count 206 MPV 9.1 L Immature Gran % (Auto) 0.2 Neut % (Auto) 42.5 L Lymph % (Auto) 43.9 H [place] % (Auto) 7.3 Eos % (Auto) 5.5 H Baso % (Auto) 0.6 Lymph # (Auto) 2.2 [place] # (Auto) 0.4 Eos # (Auto) 0.3 Baso # (Auto) 0.0 Abs Immat Gran (auto) 0.01 Absolute Neuts (auto) 2.2 Absolute Nucleated RBC 0.000 Nucleated RBC % (auto) 0.0 PT Whole Blood PT INR Whole Blood INR APTT Sodium 137 Potassium 3.6 Chloride 106 Carbon Dioxide 23 Anion Gap 12 BUN 15 Creatinine 0.83 Estim Creat Clear Calc 147.2 Estimated GFR > 60 POC Glucose Random Glucose 100 Calcium 8.6 D Phosphorus 3.3 Magnesium 2.0 Total Bilirubin 1.5 H AST 17 ALT 21 Alkaline Phosphatase 67 Troponin I High Sens < 2.7 Total Protein 6.2 L Albumin 3.9 Triglycerides Cholesterol LDL Cholesterol, Calc HDL Cholesterol Ethyl Alcohol Progress Note: A&P Assessment and plan (1) Acute left-sided weakness: Status: Acute Plan Patient is a 49 Y M presenting to ED on 05/22 w/ L upper and lower extremity weakness, s/p TNK at 12:00 05/22 N: L UE and LE weakness, markedly improved, s/p TNK 12:00 05/22; to folow-up CV: no acute issues R: no acute issues GI: regular diet : no acute issues H: no acute issues; avoid chemical?DVT prophylaxis in setting of TNK ID: no overt stigmata of infection E: to monitor hypo-/hyper-glycemia P: no acute issues S: daily updates given to Quality Stroke Does the patient have a stroke diagnosis?: No VTE Prior VTE?: No VTE Risk Level:: Medical - moderate - high VTE Device Contraindication: N/A - Device Ordered VTE Drug Contraindication: Treatment Not Tolerated
--- NOTE | 2025-05-23 10:55 | MHC.STROKE ---
Met with patient in ICU Pt awake, alert and oriented x 4. Pt sitting up in bed, visitor at bedside. Pt engaged in conversation. Pt reports improvement in symptoms with minimal to no weakness in left arm/leg. We discussed plan of care, protocol. Stroke Education reviewed, all questions answered. We also discussed patient specific medical history, medications. We discussed social hx/diet. Pt reports no smoking or drinking and reports that his cholesterol is slightly elevated. Overall, patient reports feeling better and anxious to get home. We discussed next steps in the hospital including echocardiogram and MRI. Pt will also be seen by PT/OT. Reviewed plan with RN as well. Will continue to assist as needed.
--- NOTE | 2025-05-23 14:01 | MHC.CM.PN ---
Pt resides w/spouse, works and is independent with all care needs: PT willam recommended no services: strength returning following TNK. HCP declined: spouse to transport to home.
--- NOTE | 2025-05-23 19:03 | PM.EVENT ---
Event Note Date of Service: 05/23/25 Event Note: Pt admitted to the ICU after receiving TNK for possible stroke. Assumed care of pt earlier in the afternoon. Agree with assessment and plan as per last ICU progress note. Time Spent With Patient Time: Total time managing care of this patient today ____ minutes.
[2025-05-24 03:13] VITALS: BP 121/67; PULSE 70; RESP 18; TEMP 36.1; O2SAT 93
[2025-05-24 06:58] LABS: MANUAL DIFF FLAG NO
[2025-05-24 07:03] LABS: Hematocrit 45.3 % (42.0-52.0); Hemoglobin 16.2 g/dl (14.0-18.0); Imm Gran Abs Auto 0.01 X10*3/uL (0.00-0.03); Imm Gran Pct Auto 0.2 % (0.0-0.4); Lymphocytes Absolute Auto 1.7 X10*3/uL (1.2-4.9); Mean Corpuscular HGB Conc 35.8 g/dl (31.0-36.0); Mean Corpuscular Hemoglobin 31.2 pg (27.0-33.0); Mean Corpuscular Volume 87.1 fL (80.0-98.0); NRBC Abs Auto 0.000 X10*3/uL (0.0-0.012); NRBC Pct Auto 0.0 /100WBC (0.0-0.2); Platelet Count 208 X10*3/uL (160-400); Red Blood Count 5.20 X10*6/uL (4.60-5.80); White Blood Count 5.0 X10*3/uL (4.8-10.8)
[2025-05-24 07:13] LABS: Hemoglobin A1C 123.7212 umol/L; Total Hemoglobin (HGBA1C) 4031.1561 umol/L
[2025-05-24 07:18] LABS: Anion Gap 11 (12-20); Blood Urea Nitrogen 18 mg/dL (9-16); Calcium 9.1 mg/dL (8.4-10.2); Carbon Dioxide 28 mmol/L (22-29); Chloride 107 mmol/L (96-108); Creatinine Clr Calc Pharmacy 134.0; Estimated Glomerular Filt Rate > 60; Magnesium 2.2 mg/dL (1.6-2.6); Potassium 4.1 mmol/L (3.3-5.1); Sodium 142 mmol/L (135-145)
[2025-05-24 07:34] VITALS: BP 117/73; PULSE 61; RESP 18; TEMP 36.2; O2SAT 94
[2025-05-24 11:09] VITALS: BP 111/73; PULSE 60; RESP 18; TEMP 36.4; O2SAT 96
--- NOTE | 2025-05-24 12:19 | MHC.CM.PN ---
Pt. has been medically cleared to [place], he will go home via family transport, plan is self care.
--- NOTE | 2025-05-24 12:27 | P.DS_ITS ---
DS: Providers Provider Date of Service: 05/24/25 Date of admission: 05/22/25 13:16 Date of discharge: 05/24/25 Primary care physician: Hal Jorge MD DS: Diagnosis Discharge Diagnosis (1) Acute left-sided weakness: Status: Acute DS: Summary Hospital Course Hospital Course: From admission HPI: Date of Service: 05/22/25 Chief Complaint: Left-sided heaviness 49-year-old gentleman with no significant past medical history, last annual physical 3 months ago when everything was seemed to be normal was apparently had a normal beginning Friday when he walked his dog and came back home. At around 09:45 when he was making breakfast for his daughter he suddenly felt stabbing chest pain and his left arm was heavy as well as his left leg, he walked with a so far and sat down where he has felt his left side of the body was weak. called the EMS, brought into the ED underwent CT and CTA both of which was normal, his symptoms had started improving but still had some persisting symptoms so received TNK at 11:58AM. He is admitted to medical ICU for post TNK monitoring. Hospital course: Pt was admitted to the hospital for sudden onset left-sided heaviness and weakness that was concerning for acute CVA. Patient's workup in the ED, in cluding CT of head and CTA of head/neck, was negative and pt was given TNK approximately 2.25 hours after symptom onset as there were no obvious contraindications. Pt tolerated therapy well without complications and with almost complete resolution of symptoms. Pt was monitored in the ICU for 24 hours without incident. Was seen and evaluated by Neurology who suggested starting on aspirin and statin, and getting additional imaging. Neurology was uncertain whether patient's symptoms were due to an acute CVA vs complex migraine, though leaning more toward a CVA as pt did not have any prodrome of migraine symptoms prior to symptom onset. Pt underwent MRI which was negative for intracranial hemorrhage, acute infarction, mass effect, or edema. However, did show very mild scattered white matter T2 hyperintense foci, consistent with either small-vessel ischemia or migraines. Echocardiogram was negative for any abnormal findings with LVEF 65-70%. Pt was monitored on telemetry where he ma intained sinus rhythm throughout; no arrhythmias noted. At time of discharge pt reports is essentially back to baseline. Was seen and evaluated by PT who cleared him without services. Pt will be discharged home on aspirin 81 mg daily and atorvastatin 40 mg at bedtime. Pt should follow up with both PCP in 1 week as well as Neurology in 1-2 weeks for post TNK visit and management of possible complex migraines vs hx of CVA. Time Attestation Discharge Coordination Time (in mins): 35 Quality: Safe Use of Opioids Does Pt have an Active Cancer Diagnosis on the Problem List?: No Quality: Stroke Does the patient have a stroke diagnosis?: Yes Reason for No Anti-thrombotic at DC: N/A - Med Ordered Reason for No Anticoagulant at DC: N/A - Med Ordered Reason Not Initiating IV-Tpa: N/A - Med Ordered Reason for No Anti-thrombotic by Day Two: N/A - Med Ordered Reason for No Statin at DC: N/A - Med Ordered Physical Exam Exam: Exam: General: AOx3, no acute distress Resp: CTA bilaterally CVS: S1, S2, RRR GI: +BS, NT, no distention Skin: Warm, dry Neuro: Cranial nerves II-XII grossly intact bilaterally. Motor grossly intact bilaterally. No focal deficits noted. Extremities: No edema Psych: Appropriate affect Vital Signs: Vital Signs: Last Vital Signs Temp 97.5 F 05/24/25 11:09 Pulse 60 05/24/25 11:09 Resp 18 05/24/25 11:09 BP 111/73 05/24/25 11:09 Pulse Ox 96 05/24/25 11:09 O2 Del Method Room Air 05/24/25 11:09 BMI result Body Mass Index 29.1 DS: Data Data Completed and Pending Labs on day of discharge: Laboratory Results - last 24 hr 05/24/25 06:49 WBC 5.0 RBC 5.20 Hgb 16.2 Hct 45.3 MCV 87.1 MCH 31.2 MCHC 35.8 RDW 12.3 Plt Count 208 MPV 9.0 L Immature Gran % (Auto) 0.2 Neut % (Auto) 52.2 Lymph % (Auto) 34.1 [place] % (Auto) 7.3 Eos % (Auto) 5.6 H Baso % (Auto) 0.6 Lymph # (Auto) 1.7 [place] # (Auto) 0.4 Eos # (Auto) 0.3 Baso # (Auto) 0.0 Abs Immat Gran (auto) 0.01 Absolute Neuts (auto) 2.6 Absolute Nucleated RBC 0.000 Nucleated RBC % (auto) 0.0 Sodium 142 Potassium 4.1 Chloride 107 Carbon Dioxide 28 Anion Gap 11 L BUN 18 H Creatinine 0.92 Estim Creat Clear Calc 134.0 Estimated GFR > 60 Random Glucose 98 Estimat Average Glucose 97 Hemoglobin A1c % 5.0 Calcium 9.1 Phosphorus 3.7 Magnesium 2.2 Discharge Plan Discharge Anticipated Discharge Date/Time: 05/24/25 10:27 Patient Disposition: Home, Self-Care Discharge Diagnosis: Left-sided hemiparesis concerning for acute CVA Referrals: Hal Jorge MD [Primary Care Provider, Family Practice] - 1 Week Silvano Licea MD [Physician, Neurology] - 1 Week Referral Note: Post tNK follow up, administered on 05/22/2025. Had sudden- onset left-sided hemiparesis concerning for acute CVA vs complex migraine. Discharge Medications: New atorvastatin [Lipitor] 40 mg tablet 40 mg PO BEDTIME Qty: 90 0RF Rx Instructions: Take one tablet at bedtime for hyperlipidemia aspirin 81 mg tablet 81 mg PO DAILY Qty: 90 0RF Rx Instructions: Take one tablet daily Discharge Orders: Discharge Order (Routine); Ordered 05/24/25 Ordered By: Emil Mccoy Activity on Discharge: As tolerated Stand Alone Forms: Patient Portal Discharge page Print Language: Trinidadian Care Plan Goals: See below Health Concerns: Acute stroke Left-sided hemiparesis Complex migraine Plan of Treatment: You were admitted to the hospital for sudden-onset left-sided heaviness and weakness that was concerning for acute stroke. Workup in the ED was negative, including CT of head and CTA of head/neck, and you were treated with TNK approximately 2.25 hours after symptom onset. You responded well to therapy with almost complete resolution of symptoms, and you were monitored in the ICU for 24 hours for standard post TNK monitoring. Your hospital stay overall went well without any significant complications. You were monitored on telemetry where no heart arrhythmias were noted. You underwent an echocardiogram which was normal. You were seen and evaluated by Physical therapy who cleared you for discharge home without any services. You were also seen and evaluated by Neurology who thought symptoms were either from an acute stroke or perhaps complex migraine. MRI of brain was negative for intracranial hemorrhage, acute infarction, mass effect, or edema, though did show very mild scattered white matter T2 hyperintense foci, which can be seen with either small-vessel ischemia or migraines. You will be discharged on a daily aspirin and statin. -- Take aspirin 81 mg daily -- Take atorvastatin 40 mg at bedtime -- Adhere to a low-cholesterol, low-fat diet -- Follow up with Dr. Licea in Neurology in 1-2 weeks for post TNK visit and management of migraines and hx of CVA -- Follow up with your PCP in one week for routine post-hospitalization visit Assessment: See discharge summary
== END 2025-05-24 12:45 | disposition home or self-care (01) | DRG 62 ==
LOC: HO.ED 13:10 → HO.EDOVER 13:17 → HO.ICU 13:18 → HO.IMC 05-23 14:15
PROVIDERS: Internal Medicine Critical Care Medicine; Admitting Provider Internal Medicine Critical Care Medicine; Emergency Provider Emergency Medicine; PCP Family Medicine; Visit Provider Student in an Organized Health Care Education/Training Program
DX: I63.9 Cerebral infarction, unspecified (principal); G81.94 Hemiplegia, unspecified affecting left nondominant side; R29.703 NIHSS score 3; G43.109 Migraine with aura, not intractable, without status migrainosus
CPT/HCPCS: 36415; 70450; 70496; 70498; 70551; 71045; 80048; 80053; 80061; 80307; 82947; 83036; 83735; 84100; 84484; 85025; 85610; 85730; 93005; 93306; 97161; 97165; 99285; J2470; J3101; J7120; Q9957; Q9967

== ENCOUNTER → 2025-05-22 11:00 | Outpatient (BNV) | payer OTHER, SELFPAY | PROVIDERS: Emergency Provider Emergency Medicine; Visit Provider Radiology Diagnostic Radiology | DX: G81.94 Hemiplegia, unspecified affecting left nondominant side (principal); J33.8 Other polyp of sinus; R07.89 Other chest pain | CPT/HCPCS: 70450; 70496; 70498; 71045 ==

== ENCOUNTER → 2025-05-22 11:00 | Outpatient (BNV) | payer OTHER, SELFPAY | PROVIDERS: Admitting Provider Internal Medicine Critical Care Medicine; Emergency Provider Emergency Medicine; PCP Family Medicine; Visit Provider Internal Medicine Cardiovascular Disease | DX: R00.1 Bradycardia, unspecified (principal) | CPT/HCPCS: 93010 ==

== ENCOUNTER 2025-05-22 13:16 | Outpatient (BNV) | payer OTHER, SELFPAY | END 2025-05-23 07:00 | PROVIDERS: Admitting Provider Internal Medicine Critical Care Medicine; Emergency Provider Emergency Medicine; PCP Family Medicine; Visit Provider Internal Medicine Cardiovascular Disease | DX: I63.9 Cerebral infarction, unspecified (principal) | CPT/HCPCS: 93306 ==

== ENCOUNTER 2025-05-22 13:16 | Outpatient (BNV) | payer OTHER, SELFPAY | END 2025-05-23 11:00 | PROVIDERS: Admitting Provider Internal Medicine Critical Care Medicine; Emergency Provider Emergency Medicine; PCP Family Medicine; Visit Provider Radiology Diagnostic Radiology | DX: I69.354 Hemiplegia and hemiparesis following cerebral infarction affecting left non-dominant side (principal) | CPT/HCPCS: 70551 ==

== ENCOUNTER → 2025-05-22 13:16 | Outpatient (BNV) | payer OTHER, SELFPAY | PROVIDERS: Admitting Provider Internal Medicine Critical Care Medicine; Emergency Provider Emergency Medicine; PCP Family Medicine; Visit Provider Psychiatry & Neurology Neurology | DX: R53.1 Weakness (principal) | CPT/HCPCS: 99223 ==

== ENCOUNTER → 2025-05-22 13:16 | Outpatient (BNV) | payer OTHER, SELFPAY | PROVIDERS: Admitting Provider Internal Medicine Critical Care Medicine; Emergency Provider Emergency Medicine; PCP Family Medicine; Visit Provider Internal Medicine Critical Care Medicine | DX: R53.1 Weakness (principal); I63.9 Cerebral infarction, unspecified | CPT/HCPCS: 99223; 99291 ==

== ENCOUNTER → 2025-05-22 13:16 | Outpatient (BNV) | payer OTHER, SELFPAY | PROVIDERS: Admitting Provider Internal Medicine Critical Care Medicine; Emergency Provider Emergency Medicine; PCP Family Medicine; Visit Provider Student in an Organized Health Care Education/Training Program | DX: R53.1 Weakness (principal) | CPT/HCPCS: 99239; 99499 ==

== ENCOUNTER 2025-06-02 09:48 | Outpatient (REF) | payer OTHER, SELFPAY ==
[2025-06-03 09:29] LABS: Lyme Abs Screen <0.90 index
[2025-06-13 10:29] LABS: Anti Nuclear Antibody Screen POSITIVE (NEGATIVE); Anti Nuclear Antibody Titer 1:320 titer
== END 2025-06-02 09:49 | disposition home or self-care (01) ==
LOC: HO.LAB 09:48
PROVIDERS: PCP Family Medicine; Visit Provider Psychiatry & Neurology Neurology
DX: G43.109 Migraine with aura, not intractable, without status migrainosus (principal); I67.89 Other cerebrovascular disease; Z01.84 Encounter for antibody response examination
CPT/HCPCS: 36415; 85652; 86038; 86039; 86225; 86617; 86618

== ENCOUNTER 2025-06-02 09:48 | Outpatient (AMB) | payer OTHER, SELFPAY ==
--- OUTSIDE RECORDS SUMMARY | 2025-06-02 08:30 | XMS_ITS | Encounter Summary ---
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 Name Role Phone Fran Vincent MD Unavailable Harjinder Vincent MD Unavailable [phone] Hal Jorge MD Primary Care Provider [phone] Reason for Visit * Reason Comments TCM Visit Encounter Details Date Type Department Care Team (Late st Contact Info) Description 06/02/2025 8:30 AM EDT Office Visit [facility] Medicine [address] [place] [address] Ovidio Brooke, DO [address] [place] [address] [email or web address] Transient ischemic attack (TIA) (Primary Dx) Social History Tobacco Use Types Packs/Day Years [...] high school, GED, job training, learning the [place] language, technical skills, or developing parenting skills)? [...] PM EST documented as of this encounter Last Filed Vital Signs Vital Sign Reading Time Taken Comments Blood Pressure 100/78 06/02/2025 8:19 AM EDT Pulse 67 06/02/2025 8:19 AM EDT Temperature 36.3 C (97.3 F) 06/02/2025 8:19 AM EDT Respiratory Rate - - Oxygen Saturation 96% 06/02/2025 8:19 AM EDT Inhaled Oxygen Concentration - - Weight 107.5 kg (237 lb) 06/02/2025 8:19 AM EDT Height 190.5 cm (6' 3 ) 06/02/2025 8:19 AM EDT Body Mass Index 29.62 06/02/2025 8:19 AM EDT documented in this encounter Patient Instructions * Patient Instructions* Ovidio Brooke DO - 06/02/2025 8:30 AM EDT Nice to see you today Taco Please reach out if you need a referral for another opinion I have attached some information about possible diet and some exercise. Remember to rest and don't let this overwhelm you * Attachments The following attachments cannot be sent through Care Everywhere. * Mediterranean Diet: General Info (Citizen [place]) * Fitness: Balance training: Video ([place]izen [place]) documented in this encounter Progress Notes * Ovidio Brooke DO - 06/02/2025 8:30 AM EDT Subjective: Patient ID: Taco Cobos is a 49 y.o. male. Taco is here for transition after a recent Incident He had what was thought to be a stroke or Migraine Has appointment with Neurology late today The event was L arm not working when trying to cook eggs. He has a L sided heaviness and weakness. Family noticed slow speech but was understandable. He could not walk or get to the car Transported to the Hospital. MRI was done and inconclusive He does have hx of Migraine but this did not feel like that. He did not have the usual aura that hehas. No headache at the time. He feels the L side is back. Strength is what he would expect He does have fatigue and needs to rest more than in the past. Review of Systems Constitutional: Positive for fatigue. Negative for activity change. Respiratory: Positive for cough. Negative for wheezing and stridor. Cardiovascular: Negative for chest pain and palpitations. Objective: Physical Exam Cardiovascular: Rate and Rhythm: Normal rate and regular rhythm. Heart sounds: Normal heart sounds. Pulmonary: Effort: Pulmonary effort is normal. Breath sounds: Normal breath sounds. Neurological: General: No focal deficit present. Mental Status: Mental status is at baseline. Cranial Nerves: No cranial nerve deficit. Sensory: No sensory deficit. Psychiatric: Mood and Affect: Mood normal. Assessment/Plan: Problem List Items Addressed This Visit Transient ischemic attack (TIA) - Primary With L sided weakness which has resolved - on atorvastatin and ASA - His blood pressure is good - has follow up with neurology documented in this encounter Miscellaneous Notes * Assessment & Plan Note - Ovidio Brooke DO - 06/02/2025 8:55 AM EDTAssociated Problem(s): Transient ischemic attack (TIA) With L sided weakness which has resolved - on atorvastatin and ASA - His blood pressure is good - has follow up with neurology documented in this encounter Plan of Treatment Upcoming Encounters Date Type Department Care Team (Late st Contact Info) Description 10/21/2025 12:00 PM EST Office Visit [facility] [address] [place] [address] Hal Jorge MD [address] [place] [id number] [email or web address] documented as of this encounter Visit Diagnoses Diagnosis Transient ischemic attack (TIA)- Primary Unspecified transient cerebral ischemia documented in this encounter Additional Health Concerns Assessment Noted Time PHQ-2 Depression Total Score: 0 10/20/19 25 12:15 PM EST documented as of this encounter Care Teams Furniture Finisher Helper Relationship Specialty Start Date End Date Hal Jorge MD [address] [place] [id number] [email or web address] PCP - General Family Medicine 09/16/22 Fran Vincent MD [address] [place] [id number] [email or web address] Historical LMR Provider 06/03/17 Harjinder Vincent MD [address] [place] [address] [address] [place] [phone] [email or web address] Historical LMR Provider 06/03/17 documented as of this encounter Additional Source Comments The information contained in this document represents components of the legal health record. It is not the complete legal health record.[facility]
--- NOTE | 2025-06-02 10:18 | MHC.OFFVIS ---
Intake Visit Reasons: follow up stroke, rajeev Allergies No Known Allergies Allergy (Verified 05/22/25 11:20) HPI Comments Details: 49 years old right-handed man who came to hospital at [facility] in May of 2025 with chest pain and left-sided numbness and weakness. He was treated with TNK for suspicion of acute ischemic stroke, though his MRI did not reveal any acute finding. Minimal punctate white matter signal abnormalities were noted. Upon my interview, he stated that his symptoms seem to spread and few minutes. His CTA of brain and neck did not reveal any vascular lesion. He is presenting with neurological symptoms and evaluation for management. He reports developing migraines approximately two years ago, managed with a prescribed medication for symptomatic relief. Episodes occur irregularly, with potential clustering. Additionally, about a year prior, he experienced an episode believed to be a Transient Ischemic Attack, characterized by left-sided weakness. Upon hospital discharge, he exhibited significant recovery; however, he still experiences noticeable left-side weakness, particularly during sports activities. Following hospitalization, he began a regimen of baby aspirin and a cholesterol-lowering medication, which he continues. Despite the absence of recent severe headaches, he occasionally experiences mild headaches. The patient expresses concerns about prolonged fatigue and residual left-side weakness, seeking clarification and guidance on managing his neurological condition. [facility] Social History Household Members: Spouse and Children Housing: House Do you presently have visiting nurse or other home services: No Alcohol intake: never Patient Tobacco Use Status: Never used Tobacco service: No Review of Systems Const Details: - Neurological: Reports residual left-side weakness, past migraines, increased fatigue, and mild headache last night. Denies recent severe headaches comparable to previous migraines. - Cardiovascular: Denies recent chest pain. - Musculoskeletal: Reports decreased strength in left hand. - General: Reports fatigue. Physical Exam Neuro Other: Mental Status: Alert and oriented to person, place, and time. Normal attention. Normal spontaneous speech, fluency, and comprehension. No obvious issues with mood and memory. Affect is appropriate. Cranial Nerves: CN II: Visual pineda full to confrontation, visual acuity intact. CN III, IV, : Pupils equal, round, reactive to light and accommodation. Extraocular movements are normal. CN V: Facial sensation is normal. CN VII: Facial movements symmetrical. CN VIII: Hearing intact to bedside conversation is normal. CN IX, X: Palate elevates symmetrically. CN XI: Shoulder shrug and head turn symmetrical. CN XII: Tongue midline without atrophy or fasciculations. Motor: Bulk and tone normal in all extremities. No significant muscle weakness in arms and legs. No drift. Reflexes: Deep tendon reflexes 2+ and symmetric. Plantar response down-going bilaterally. Coordination: Sdhfop-kn-ykhc and wolw-xr-emkc testing normal. No dysmetria. Gait and Station: No obvious gait abnormality. No ataxia or instability. Extrapyramidal: Full facial expressions and blinking. No rigidity. Movements are appropriate with no tremor or abnormality. Speech: Normal; no dysarthria or tremor. Assessment & Plan Assessment & Plan (1) Migraine equivalent syndrome: Comment: CT brain WO at [facility] in May 2025: [place] CTA brain and neck at [facility] in May 2025: [place] MRI brain WO at [facility] in May 2025: Minimal MVD, otherwise ok, no acute lesion. Chest X-ray at [facility] in May 2025: Borderline cardiomegaly TTEat [facility] in May 2025: WNL EKG at [facility] in May 2025: SB Code(s): G43.109 - Migraine with aura, not intractable, without status migrainosus Category: Medical (2) Migraine without aura: Code(s): G43.009 - Migraine without aura, not intractable, without status migrainosus Category: Medical Qualifiers: Intractability: not intractable Status migrainosus presence: without status migrainosus Qualified Code(s): G43.009 - Migraine without aura, not intractable, without status migrainosus Plan Impression: a: Migraine w/o aura b: Recent episode of mild left-sided numbness and weakness that could be related to migraine. c: Minimal cerebral microvascular disease Rec: a: Baby aspirin daily b: Atorovastatin c: May use sumatriptan as needed but not if has stroke like symptoms Orders: Orders Anti DNA DS Antibody Today G43.109 - Migraine with aura, not intractable, without status migrainosus Erythrocyte Sedimentation Rate Today I67.89 - Other cerebrovascular disease CHADD Reflex Titer and Pattern Today G43.109 - Migraine with aura, not intractable, without status migrainosus Lyme IgG/IgM w/reflex to WB Today G43.109 - Migraine with aura, not intractable, without status migrainosus, I67.89 - Other cerebrovascular disease Coding Level of Care Code Est Pt Level 5 (98234) Diagnoses Migraine equivalent syndrome G43.109 Migraine without aura and without status migrainosus, not intractable G43.009 Intractability: not intractable Status migrainosus presence: without status migrainosus
--- OUTSIDE RECORDS SUMMARY | 2025-06-02 11:27 | XMS_ITS | Encounter Summary ---
Author Organization [facility] Address [facility] [address] [facility] [address] [place] [address] Phone Care Team Providers Care Napper Tender Name Role Phone Fran Vincent MD Unavailable [phone] Harjinder Vincent MD Unavailable [phone] Hal Jorge MD Primary Care Provider [phone] Reason for Referral * Consultation (Within 3 days (urgent)) - Authorized Specialty Diagnoses / Procedures Referred By Contac t Referred To Contact Diagnoses Left-sided weakness Hal Jorge MD [address] [place] [address] 7 [place] [address] Phone: tel: fax: [email or web address] Silvano Licea MD [address] [place] [address] Dr Han [address] [place] [address] Phone: tel: fax: Referral ID Status Reason Start Date Expiration Date V isits Requested Visits Authorized [id number] Authorized 05/25/2025 05/25/2026 6 6 Reason for Visit * Reason Onset Date Comments TCM Visit 05/25/2025 Unable to schedu le Encounter Details Date Type Department Care Team ([facility] Contact Info) Description 05/25/2025 Telephone Faculte [facility] [address] [place] [address] Hal Jorge MD [address] [facility], [address] [place] [address] [email or web address] TCM Visit (Unable to schedule) Social History Tobacco Use Types Packs/Day Years [...] high school, GED, job training, learning the Irish language, technical skills, or developing parenting skills)? [...] PM EST documented as of this encounter Progress Notes * Hal Jorge MD - 05/25/2025 11:16 PM EDT Referral signed for patient. Ok for scheduled TCM. * Irene Marcos RN - 05/25/2025 10:12 AM EDT Spoke with patient, med rec and post discharge form completed. States he went to ER for left sided numbness. States MRI was inconclusive for stroke. States he needs referral for [facility] Neurology with Dr. Licea. States he is feeling much better, has 90% strength back to left side of body. Referral pended, will alert PCP. Post Discharge Call Post discharge call documentation: Is a post discharge call required?: Yes Please indicate post discharge status: Patient reached - post discharge complete Patient eligible for TCM billing (reached or two unsuccessful attempts within two business days post discharge)?: Yes General: Discharge information: Admit date: 05/22/25 Discharge date: 05/24/25 Discharge from: [facility] Reason for hospitalization: acute stroke or complex migraine Discharge disposition: much better How is the patient feeling since discharge (pain level and other considerations)?: Improving Please describe: 90% strength back to left side of body Safety and self care: Does the patient/caregiver have any safety concerns (falls, transfers, stairs, abuse, etc.)?: No Is the patient/caregiver able to take care of post discharge needs at home (wound care, medication(s), etc)?: Yes Assistive devices/equipment and home services: Was the patient sent home with any assistive devicesor equipment?: No Was the patient sent home with home services?: No Medication review: Were you able to review the medication list with the patient/caregiver?: Yes Were there any medication changes while the patient was in the hospital (such as anticoagulant dosechanges, insulin, etc)?: Yes What changes?: see med list Were there any discrepancies during medication review?: No Was the patient/caregiver able to pickle processor all new prescriptions?: Yes Does the patient need any other medications renewed/refilled?: No Does the patient/caregiver have questions regarding their medications or side effects?: No Follow up/conclusion: Was a follow up appointment scheduled with the patient's PCP office?: Yes Date of next appointment with the PCP: 06/02/25 Summary (include items to be addressed in follow up visit): Advise patient to call PCP office if symptoms worsen or do not improve as anticipated * Mar Conklin - 05/25/2025 8:44 AM EDT [facility] PEN Top Smart Phrases: Transitional Care Management New Patient: No Hospitalization Name: [facility] Discharge Date: 05/24 Reason for Visit+ Diagnosis: Acute stroke or complex migraine Is the discharge summary in patient chart: Yes, see media If not did you inform the patient/patient advocate to fax it to the office: YES/NO: no Please inform the patient/patient advocate to fax and bring a copy to the appt. Appointment Date: n/a Is the appt: Awareness: Appt need to be schedule with in 2 to 14 calendar days from discharge date Additional Note (if applicable): [facility] Call Center CSS Agent (Please do not reply to this user, as this inbox is not monitored. Thank you.) Thank you. documented in this encounter Plan of Treatment Upcoming Encounters Date Type Department Care Team (Late st Contact Info) Description 10/21/2025 12:00 PM EST Office Visit [facility] [address] [facility] [place] [address] Hal Jorge MD [address] [facility], [address] [place] [address] [email or web address] Scheduled Referrals Name Type Priority Associated Diagnoses Order Schedule Ambulatory referral to External Neurology Outpatient Referral Routine Left-sided weakness Ordered: 05/25/2025 documented as of this encounter Visit Diagnoses Diagnosis Left-sided weakness- Primary documented in this encounter Additional Health Concerns Assessment Noted Time PHQ-2 Depression Total Score: 0 10/20/19 25 12:15 PM EST documented as of this encounter Care Teams Napper Tender Relationship Specialty Start Date End Date Hal Jorge MD [address] [facility], [address] [place] [address] [email or web address] PCP - General Family Medicine 09/16/22 Fran Vincent MD [address] [place] [address] 7 [place] [phone] [email or web address] Historical LMR Provider 06/03/17 Harjinder Vincent MD [address] [place] [address]. [address] [place] [phone] [email or web address] Historical LMR Provider 06/03/17 documented as of this encounter Additional Source Comments The information contained in this document represents components of the legal health record. It is not the complete legal health record.[facility]
--- OUTSIDE RECORDS SUMMARY | 2025-06-02 11:27 | XMS_ITS | Encounter Summary ---
Author Organization [facility] Address [facility] [employer] [address] [address] Phone Care Team Providers Care Distribution A Class Lineman Name Role Phone Lulú Bui GRAVITY METER OPERATOR Unavailable [phone] Christy Casas GRAVITY METER OPERATOR Unavailable Sandee Rodriguez SCOOTER MECHANIC Unavailable Susie Ferro AUTOMATIC CENTRIFUGAL STATION OPERATOR Unavailable Fran Vincent MD Unavailable Jenni Hinson GRAVITY METER OPERATOR Unavailable Harjinder Vincent MD Unavailable Jaxson Roman SCOOTER MECHANIC Unavailable Fran Vincent MD Primary Care Provider Hal Jorge MD Primary Care Provider [phone] Encounter Details Date Type Department Care Team (Late st Contact Info) Description 08/07/2017 Procedure Pass OR Admitting Dept - Virtual Department 30 [place], [place] [id number] Social History Tobacco Use Types Packs/Day Years [...] Description 10/21/2025 12:00 PM EST Office Visit [facility] 234 [place] [address] Hal Jorge MD [address] [address] documented as of this encounter Visit Diagnoses Not on filedocumented in this encounter Care Teams Distribution A Class Lineman Relationship Specialty Start Date End Date Fran Vincent MD [address] [place] [phone] [email or web address] PCP - General Family Medicine 08/04/17 09/15/22 Hal Jorge MD [address] [place] [address] PCP - General Family Medicine 09/16/22 Lulú Bui GRAVITY METER OPERATOR 1 [place] [address] Historical LMR Provider 06/03/17 2 Christy Casas NP 29 [place] [address] Historical LMR Provider 06/03/17 2 Sandee Rodriguez, JESUSITA [address] [facility], 2nd [place] [address] Historical LMR Provider 06/03/17 08/25/21 Pillo Susie DOMINIC Boss [address] [facility], [address] [place] [address] Historical LMR Provider 06/03/17 08/25/21 Fran Vincent MD [address] [place] [address] [address] [place] [address] [email or web address] Historical LMR Provider 06/03/17 Jenni Hinson NP [address] [place] [address] Historical LMR Provider 06/03/17 2 Harjinder Vincent MD [address] [place] [address] [address] [place] [address] [email or web address] Historical LMR Provider 06/03/17 Jaxson Roman CNP [address] [place] [address], [address] [place] [address] Historical LMR Provider 06/03/17 documented as of this encounter Additional Source Comments The information contained in this document represents components of the legal health record. It is not the complete legal health record.[facility]
--- OUTSIDE RECORDS SUMMARY | 2025-06-02 11:27 | XMS_ITS | Encounter Summary ---
Author Organization [facility] Address [address] [place] [address] [address] [place] [address] Phone Care Team Providers Care Medical Billing Instructor Name Role Phone Fran Vincent MD Unavailable [phone] Harjinder Vincent MD Unavailable [phone] aHl Jorge MD Primary Care Provider [phone] Reason for Referral * MRI/CAT Scan - Closed Specialty Diagnoses / Procedures Referred By Contac t Referred To Contact Radiology Procedures Outside MR Head/Neck Report Only [facility] 234 [place] [address] Phone: tel: fax: Referral ID Status Reason Start Date Expiration Date Visits Re quested Visits Authorized [id number] Closed 05/25/2025 1 1 Encounter Details Date Type Department Care Team (Late st Contact Info) Description 05/25/2025 Orders Only Chantel Torres [facility] [address] [place] [address] Cary Diaz MD [address] [place] [address] Social History Tobacco Use Types Packs/Day Years [...] high school, GED, job training, learning the Albanian language, technical skills, or developing parenting skills)? [...] Upcoming Encounters Date Type Department Care Team ([facility] st Contact Info) Description 10/21/2025 12:00 PM EST Office Visit [facility] [address] [place] [address] Hal Jorge MD 234 [facility] 7 [place] [address] [email or web address] documented as of this encounter Procedures Procedure Name Priority Date/Time Associated Diagnosis Comments OUTSIDE MR HEAD/NECK REPORT ONLY Routine 05/25/2025 10:11 AM EDT documented in this encounter Results * Outside MR Head/Neck Report Only (05/25/2025 10:11 AM EDT) us Historical Provider MD [facility]PT[place] MR HEAD/NECK Final Re sult documented in this encounter Visit Diagnoses Not on filedocumented in this encounter Additional Health Concerns Assessment Noted Time PHQ-2 Depression Total Score: 0 10/20/19 25 12:15 PM EST documented as of this encounter Care Teams Medical Billing Instructor Relationship Specialty Start Date End Date Hal Jorge MD [address] [place] [address] 7 [place] [address] [email or web address] PCP - General Family Medicine 09/16/22 Fran Vincent MD [address] [place] [address] 7 [place] [address] [email or web address] Historical LMR Provider 06/03/17 Harjinder Vincent MD [address] [place] [address] [address] [place] [address] [email or web address] Historical LMR Provider 06/03/17 documented as of this encounter Additional Source Comments The information contained in this document represents components of the legal health record. It is not the complete legal health record.[facility]
--- OUTSIDE RECORDS SUMMARY | 2025-06-02 11:27 | XMS_ITS | Encounter Summary ---
Author Organization [facility] Address [facility] [employer] [address] [address] Phone Care Team Providers Care Applications Coordinator Name Role Phone Lulú Bui AIR SUPPORT CONTROL OFFICER Unavailable [phone] Christy Casas AIR SUPPORT CONTROL OFFICER Unavailable Sandee Rodriguez NANOSYSTEMS ENGINEER Unavailable Susie Ferro OUTSIDE SALESMAN Unavailable Fran Vincent MD Unavailable [phone] Jenni Hinson AIR SUPPORT CONTROL OFFICER Unavailable Harjinder Vincent MD Unavailable Jaxson Roman NANOSYSTEMS ENGINEER Unavailable Fran Vincent MD Primary Care Provider Hal Jorge MD Primary Care Provider [phone] Encounter Details Date Type Department Care Team (Late st Contact Info) Description 08/07/2017 Procedure Pass OR Admitting Dept - Virtual Department 30 [place], [place] [phone] Social History Tobacco Use Types Packs/Day Years [...] Description 10/21/2025 12:00 PM EST Office Visit [facility] 234 [place] [address] Hal Jorge MD [address] [address] [email or web address] documented as of this encounter Visit Diagnoses Not on filedocumented in this encounter Care Teams Applications Coordinator Relationship Specialty Start Date End Date Fran Vincent MD [address] [place] [phone] [email or web address] PCP - General Family Medicine 08/04/17 09/15/22 Hal Jorge MD [address] [place] [address] [email or web address] PCP - General Family Medicine 09/16/22 Lulú Bui AIR SUPPORT CONTROL OFFICER 1 [place] [address] Historical LMR Provider 06/03/17 2 Christy Casas NP 29 [place] [address] Historical LMR Provider 06/03/17 2 Sandee Rodriguez, JESUSITA 15 [facility], 2nd [place] [address] Historical LMR Provider 06/03/17 08/25/21 Pillo Susie DOMINIC Boss 234 [facility], [address] [place] [address] [email or web address] Historical LMR Provider 06/03/17 08/25/21 Fran Vincent MD [address] [place] [address] [address] [place] [address] [email or web address] Historical LMR Provider 06/03/17 Jenni Hinson NP [address] [place] [address] Historical LMR Provider 06/03/17 2 Harjinder Vincent MD [address] [place] [address] [address] [place] [address] [email or web address] Historical LMR Provider 06/03/17 Jaxson Roman CNP [address] [place] [address], [address] [place] [address] [email or web address] Historical LMR Provider 06/03/17 documented as of this encounter Additional Source Comments The information contained in this document represents components of the legal health record. It is not the complete legal health record.[facility]
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
--- OUTSIDE RECORDS SUMMARY | 2025-06-02 11:27 | XMS_ITS | Encounter Summary ---
Author Organization [facility] Address [facility] [employer] [address] [address] Phone Care Team Providers Care Psychiatric Tech Name Role Phone Lulú Bui INTEGRITY CONSULTANT Unavailable [phone] Christy Casas INTEGRITY CONSULTANT Unavailable [phone] Sandee Rodriguez ASSISTANT MANAGER RETAIL Unavailable Susie Ferro WIRE BENDER HAND Unavailable Fran Vincent MD Unavailable Jenni Hinson INTEGRITY CONSULTANT Unavailable Harjinder Vincent MD Unavailable Jaxson Roman ASSISTANT MANAGER RETAIL Unavailable Fran Vincent MD Primary Care Provider Hal Jorge MD Primary Care Provider [phone] Encounter Details Date Type Department Care Team (Late st Contact Info) Description 09/02/2017 Procedure Pass [facility], Ct Scan - [address] [address] Social History Tobacco Use Types Packs/Day Years [...] Description 10/21/2025 12:00 PM EST Office Visit [facility] [address] [place] [address] Hal Jorge MD [address] [place] [phone] [email or web address] documented as of this encounter Visit Diagnoses Not on filedocumented in this encounter Care Teams Psychiatric Tech Relationship Specialty Start Date End Date Fran Vincent MD [address] [place] [phone] [email or web address] PCP - General Family Medicine 08/04/17 09/15/22 Hal Jorge MD [address] [place] [address] [email or web address] PCP - General Family Medicine 09/16/22 Lulú Bui INTEGRITY CONSULTANT [address] [place] [address] Historical LMR Provider 06/03/17 2 Christy Casas, CHANEL [address] [place] [address] Historical LMR Provider 06/03/17 2 Sandee Rodriguez, JESUSITA [address] [facility], [address]nd [place] [address] Historical LMR Provider 06/03/17 08/25/21 Susie Ferro FNP [address] [facility], [address] [place] [address] [email or web address] Historical LMR Provider 06/03/17 08/25/21 Fran Vincent MD [address] [place] [address] [address] [place] [phone] [email or web address] Historical LMR Provider 06/03/17 Jenni Hinson NP [address] [place] [address] Historical LMR Provider 06/03/17 2 Harjinder Vincent MD [address] [place] [address] [address] [place] [address] [email or web address] Historical LMR Provider 06/03/17 Jaxson Roman CNP [address] [place] [address], [address] [place] [address] [email or web address] Historical LMR Provider 06/03/17 documented as of this encounter Additional Source Comments The information contained in this document represents components of the legal health record. It is not the complete legal health record.[facility]
== END 2025-06-02 10:33 | disposition home or self-care (01) ==
LOC: HO.HSM 09:48
PROVIDERS: PCP Family Medicine; Visit Provider Psychiatry & Neurology Neurology
DX: G43.109 Migraine with aura, not intractable, without status migrainosus (principal); G43.009 Migraine without aura, not intractable, without status migrainosus
CPT/HCPCS: 99214